=== PATIENT | female | born 1980 | race Caucasian/White ===

== ENCOUNTER 2016-11-07 11:14 | Emergency (ER) | payer OTHER ==
[~2016-11-07] VITALS: Ht 157.5 cm; Wt 68.6 kg
[2016-11-07] MEDS ORDERED: LEVO88TA3 PO (11:33)
[2016-11-07] MEDS ORDERED: PRENTAB29 PO (11:35)
[2016-11-07] MEDS ORDERED: AZIT-12 PO (11:35)
[2016-11-07 13:19] LABS: BASO # 0.1 K/mm3 (0.0-0.2); BASO % 0.8 % (0.0-1.0); EOS # 0.2 K/mm3 (0.0-0.50); EOS % 1.8 % (0.0-3.0); LARGE UNSTAINED CELL # 0.2 K/mm3 (0.0-0.4); LARGE UNSTAINED CELL % 1.7 % (0.0-4.0); LYMPH # 1.9 K/mm3 (1.5-4.5); LYMPH % 19.3 % (24.0-44.0); MEAN CORPUSCULAR HEMOGLOBIN 30.7 pg (27.0-33.0); MEAN CORPUSCULAR VOLUME 87.7 fl (80.0-96.0); MONO # 0.4 K/mm3 (0.0-0.8); MONO % 3.8 % (0.0-5.0); NEUTROPHILS # 7.2 K/mm3 (1.8-7.7); NEUTROPHILS % 72.6 % (36.0-66.0); PLATELET COUNT, AUTOMATED 331 k/mm3 (150-450); RED CELL DISTRIBUTION WIDTH 12.8 % (11.5-14.5); WHITE BLOOD COUNT 9.9 K/mm3 (4.0-10.0)
[2016-11-07 14:19] VITALS: BP 130/78
--- NOTE | 2016-11-07 14:40 | REP ---
PELVIC ULTRASOUND: Real-time sonographic evaluation of the pelvis performed utilizing transabdominal and endovaginal technique. Urinary bladder measures 4.1 x 5.8 x 5.1 cm. Uterus measures 9.2 x 4.9 x 5.2 cm. Endometrial thickness is 14 mm. Focal hyperechoic area in the endometrium may represent a polyp measuring 11 x 7 x 7 mm. Right ovary measures 4.2 x 2.1 x 3.1 cm and left ovary 3.6 x 1.9 x 2.7 cm. There is no adnexal mass or free fluid. There is no evidence of ovarian torsion, with both lobes seen in each ovary with duplex Doppler evaluation. IMPRESSION: Possible endometrial polyp 1.1 cm in diameter. Endometrial thickness is 14 mm. No adnexal mass or free fluid. No torsion. Signed by Apollo Purvis MD 11/07/2016 05:04 P
== END 2016-11-07 14:20 | disposition home or self-care (01) ==
LOC: M ED 11:14
DX: N84.0 Polyp of corpus uteri (principal); N92.0 Excessive and frequent menstruation with regular cycle; Z72.0 Tobacco use

== ENCOUNTER 2017-10-25 20:57 | Emergency (ER) | payer OTHER | END 2017-10-25 22:07 | disposition left against medical advice (07) | LOC: M ED 20:57 | DX: Z53.21 Procedure and treatment not carried out due to patient leaving prior to being seen by health care provider (principal) ==

== ENCOUNTER 2017-11-05 15:34 | Emergency (ER) | payer OTHER ==
[2017-11-05 16:36] LABS: BASO # 0.1 10^3/uL (0.0-0.2); BASO % 1.1 % (0.0-1.0); EOS # 0.2 10^3/uL (0.0-0.50); EOS % 1.9 % (0.0-3.0); HEMOGLOBIN 14.8 g/dl (12.0-15.5); IMMATURE GRANULOCYTE % 0.3 % (0-3.0); LYMPH # 3.1 10^3/uL (1.5-4.5); LYMPH % 29.3 % (24.0-44.0); MEAN CORPUSCULAR HEMOGLOBIN 30.2 pg (27.0-33.0); MEAN CORPUSCULAR HGB CONC 34.4 g/dl (32.0-36.5); MEAN CORPUSCULAR VOLUME 87.8 fl (80.0-96.0); MONO # 0.7 10^3/uL (0.0-0.8); MONO % 6.5 % (0.0-5.0); NEUTROPHILS # 6.5 10^3/uL (1.8-7.7); NEUTROPHILS % 60.9 % (36.0-66.0); PLATELET COUNT, AUTOMATED 279 10^3/uL (150-450); RED CELL DISTRIBUTION WIDTH 12.6 % (11.5-14.5); WHITE BLOOD COUNT 10.7 10^3/uL (4.0-10.0)
[2017-11-05 16:45] LABS: KETONE, URINE AUTO RFX NEGATIVE (NEGATIVE); LEUKOCYTE ESTERASE UR AUTO RFX NEGATIVE (NEGATIVE); NITRITE, URINE AUTO RFX NEGATIVE (NEGATIVE); RBC, URINE AUTO RFX 2 /HPF (0-3); SPECIFIC GRAVITY UR AUTO RFX 1.003 (1.002-1.035); SQUAM EPITHELIAL CELL UR AURFX 2 /HPF (0-6); WBC, URINE AUTO RFX 1 /HPF (0-3)
[2017-11-05 16:50] LABS: ANION GAP 8 MEQ/L (8-16); BLOOD UREA NITROGEN 10 MG/DL (7-18); CALCIUM LEVEL 9.1 MG/DL (8.5-10.1); CARBON DIOXIDE LEVEL 25 MEQ/L (21-32); CHLORIDE LEVEL 107 MEQ/L (98-107); CREATININE FOR GFR 0.94 MG/DL (0.55-1.30); GLOMERULAR FILTRATION RATE > 60.0 (>60); GLUCOSE, FASTING 82 MG/DL (70-100); SODIUM LEVEL 140 MEQ/L (136-145)
[2017-11-05 16:51] LABS: ALBUMIN 4.1 GM/DL (3.2-5.2); ALBUMIN/GLOBULIN RATIO 1.08 (1.00-1.93); ALKALINE PHOSPHATASE 84 U/L (45-117); ALT/SGPT 39 U/L (12-78); AST/SGOT 19 U/L (7-37); BILIRUBIN,DIRECT 0.2 MG/DL (0.0-0.2); BILIRUBIN,TOTAL 0.6 MG/DL (0.2-1.0); TOTAL PROTEIN 7.9 GM/DL (6.4-8.2)
[2017-11-05] MEDS ORDERED: ISOVUE-370 76% 100ML VIAL (Q9967) As Ordered (17:06)
[2017-11-05] MEDS: IBUPROFEN 600 MG TAB PO (19:04)
== END 2017-11-05 19:24 | disposition home or self-care (01) ==
LOC: M ED 15:34
DX: N83.201 Unspecified ovarian cyst, right side (principal); R91.1 Solitary pulmonary nodule; E03.9 Hypothyroidism, unspecified; Z72.0 Tobacco use; Z79.899 Other long term (current) drug therapy; Z88.0 Allergy status to penicillin; Z88.5 Allergy status to narcotic agent; Z91.030 Bee allergy status
CPT/HCPCS: Q9967

== ENCOUNTER 2018-04-10 08:13 | Day surgery (SDC) | payer OTHER ==
[~2018-04-10] VITALS: Ht 154.9 cm; Wt 71.7 kg
[~2018-04-10 08:13] MED LIST: AZIT-12 PO; IBUP200C25 PO; LEVO100T5; LEVO88TA3 PO; LR 1,000 ML IV ONE; PRENTAB29 PO
[2018-04-10 08:43] LABS: HEMATOCRIT 42.4 % (36.0-47.0); HEMOGLOBIN 14.7 g/dl (12.0-15.5); MEAN CORPUSCULAR HEMOGLOBIN 29.8 pg (27.0-33.0); MEAN CORPUSCULAR HGB CONC 34.7 g/dl (32.0-36.5); PLATELET COUNT, AUTOMATED 275 10^3/uL (150-450); RED BLOOD COUNT 4.93 10^6/uL (4.00-5.40); WHITE BLOOD COUNT 9.5 10^3/uL (4.0-10.0)
[2018-04-10] MEDS ORDERED: dexameTHASONE 4 MG/ML 1ML VIAL (J1100) As Ordered ONE (08:55)
[2018-04-10] MEDS ORDERED: MIDAZOLAM INJ 2 MG/2 ML VIAL (J2250) As Ordered ONE (08:55)
[2018-04-10] MEDS ORDERED: PROPOFOL 200 MG/20 ML VIAL As Ordered ONE (08:55)
[2018-04-10] MEDS ORDERED: LIDOCAINE 2% INJ 100 MG/5 ML SDV (FOR ANES.) As Ordered ONE (08:55)
[2018-04-10] MEDS ORDERED: ONDANSETRON 4MG/2ML VIAL (J2405) As Ordered ONE (08:55)
[2018-04-10] MEDS ORDERED: KETOROLAC 60 MG/2 ML VIAL (J1885) As Ordered ONE (08:55)
[2018-04-10] MEDS ORDERED: fentaNYL 100 MCG/2 ML INJECTION (J3010) As Ordered ONE (08:56)
[2018-04-10] MEDS ORDERED: TYLE325T5 PO (08:56)
[2018-04-10 09:10] LABS: HCG, SERUM QUALITATIVE NEGATIVE (NEGATIVE)
[2018-04-10] MEDS ORDERED: PERCOCET 5MG/325MG TAB PO PRN (11:00)
[2018-04-10] MEDS ORDERED: LR 1,000 ML IV SCH (11:00)
[2018-04-10] MEDS ORDERED: fentaNYL 100 MCG/2 ML INJECTION (J3010) IV PRN (11:00)
[2018-04-10 11:45] VITALS: BP 128/69
--- NOTE | 2018-04-11 11:10 | RO ---
DATE OF PROCEDURE: 04/10/2018 PREOPERATIVE DIAGNOSIS: Endometrial polyp. POSTOPERATIVE DIAGNOSIS: Endometrial polyp. PROCEDURE: Operative hysteroscopy. SURGEON: Umang Gill DO ARCHITECT INTERN: None. ANESTHESIA: General. FLUIDS: 700 mL lactated Ringer (LR). URINE OUTPUT: 0. ESTIMATED BLOOD LOSS (EBL): 5 mL. COMPLICATIONS: None. ANTIBIOTICS: None. DETAILED PROCEDURE DESCRIPTION: The risks, benefits, indications, and alternatives of the procedure were reviewed with the patient, and informed consent was obtained. The patient was taken to the operating room, where general anesthesia was obtained without difficulty. The patient was then placed in the lithotomy position using Fabian stirrups. An examination under anesthesia was then performed. This was significant for midline mobile 10-week size anteverted uterus. The patient was then prepped and draped in the usual sterile fashion. A surgical time-out was then performed, and all in attendance were in agreement with the planned procedure and the patient's identity. A sterile speculum was then placed in the patient's vagina, and the cervix was visualized. A single-tooth tenaculum was used to grasp the anterior lip of the cervix. A uterine sound was then gently placed into the uterus, which sounded to 10 cm in total length. The cervix was then gently serially dilated to a size 12- Portuguese with a Leon dilator. The hysteroscope was first primed. The hysteroscope was then advanced through the endocervical canal under direct visualization. After distension of the uterine cavity with warm saline, a systemic examination of the intrauterine was performed. A 1.5-cm endometrial uterine polyp was noted on the posterior portion of the cavity. The tubal ostia were visualized bilaterally and normal in appearance. hysteroscopic scissors were then inserted into the uterine cavity, and the endometrial polyp was dissected away from the posterior endometrium. The endometrial polyp was then grasped with hysteroscopic graspers and removed from the uterine cavity. The Hysteroscope was then removed. A Gentle sharp curettage was then performed until a uterine cri was noted in all planes. All tissue obtained, including the polyp, was sent to pathology for review. The hysteroscope was then reinserted into the uterine cavity and the uterus was again inflated. The uterine cavity was then found to be free of polyps. The hysteroscope was then removed. A second gentle curettage was then performed, and a small amount of tissue was obtained and sent to pathology for review. The single-tooth tenaculum was then removed from the anterior lip of the cervix. The tenaculum site was noted to be hemostatic. The cervix was noted to be hemostatic, as well. All instruments were then confirmed to have been removed from the vagina. The patient tolerated the procedure well. At the completion of the case, sponge, instrument, and lap counts were correct times two. The patient was taken to the postanesthesia care unit (PACU) in stable condition. TANYA
== END 2018-04-10 11:56 | disposition home or self-care (01) ==
LOC: M SDC 08:13
PROVIDERS: ATTEND Obstetrics & Gynecology
DX: N84.0 Polyp of corpus uteri (principal); E03.9 Hypothyroidism, unspecified; K21.9 Gastro-esophageal reflux disease without esophagitis; F41.9 Anxiety disorder, unspecified; T88.59XD Other complications of anesthesia, subsequent encounter; Z88.0 Allergy status to penicillin; Z88.1 Allergy status to other antibiotic agents; Z88.5 Allergy status to narcotic agent; Z91.030 Bee allergy status; Z79.899 Other long term (current) drug therapy; Z87.891 Personal history of nicotine dependence
CPT/HCPCS: 36415; 58558; 84703; 85027; 86850; 86900; 86901; 88305; J1100; J1885; J2250; J2405; J3010